=== PATIENT | male | born 1985 | race Two or more races ===

== ENCOUNTER 2018-08-16 19:13 | Emergency (ER) | payer BC ==
[~2018-08-16] VITALS: Ht 188 cm; Wt 93.0 kg
--- NOTE | 2018-08-16 19:32 | NUR ---
CALLED IN [facility], NO ANSWER.
[2018-08-16 19:34] VITALS: BP 129/83
== END 2018-08-16 21:55 | disposition home or self-care (01) ==
LOC: ER 19:16
DX: S43.084A Other dislocation of right shoulder joint, initial encounter (principal); S00.212A Abrasion of left eyelid and periocular area, initial encounter; M21.821 Other specified acquired deformities of right upper arm; Z98.890 Other specified postprocedural states; W51.XXXA Accidental striking against or bumped into by another person, initial encounter; Y93.66 Activity, soccer; Y92.322 Soccer field as the place of occurrence of the external cause; Y99.8 Other external cause status
CPT/HCPCS: 73030-TC; G0500

== ENCOUNTER 2020-12-17 21:45 | Emergency (ER) | payer SELFPAY ==
--- NOTE | 2020-12-17 22:45 | NUR ---
CALLED FOR TRIAGE. NO ANSWER
--- NOTE | 2020-12-17 23:01 | NUR ---
CALLED TO TRIAGE NOT IN WAITING ROOM
--- NOTE | 2020-12-17 23:08 | NUR ---
CALLED PT FOR TRIAGE. NO ANSWER
== END 2020-12-17 23:25 | disposition left against medical advice (07) ==
LOC: ER 21:47
DX: Z53.21 Procedure and treatment not carried out due to patient leaving prior to being seen by health care provider (principal)